=== PATIENT | female | born 1970 | race Caucasian/White ===

== ENCOUNTER → 2017-07-09 | Outpatient (CLI) | payer OTHER ==
[~2017-07-09] MED LIST: ASPI325T39 PO; HYDR-5688 PO; IBUP-103 PO; [UNRECOGNIZED DRUG - REMARK] PO
[2017-07-09 16:59] LABS: BASO % 0.2 %; BASO ABS # 0.02 K/uL (0-0.2); COMPLETE YES; EOS % 0.5 %; HEMATOCRIT 39.8 % (37-47); IG% 0.3 %; LYMPH % 24.9 %; LYMPH ABS # 2.87 K/uL (1.2-3.4); MEAN CELL VOLUME 93.6 fL (80-100); MEAN CORPUSCULAR HEMOGLOBIN 30.8 pg (25-34); MEAN CORPUSCULAR HGB CONC 32.9 g/dl (32-36); MEAN PLATELET VOLUME 12.5 fL (7.4-10.4); MONO % 6.1 %; PLATELET COUNT 231 K/uL (130-400); RED BLOOD COUNT 4.25 M/uL (4.2-5.4); WHITE BLOOD COUNT 11.51 K/uL (4.8-10.8)
[2017-07-09 17:06] LABS: URINE APPEARANCE CLEAR (CLEAR); URINE BILIRUBIN NEG (NEG); URINE COLOR YELLOW; URINE NITRITE NEG (NEG); UROBILINOGEN NEG (NEG)
[2017-07-09 17:12] LABS: MANUAL MICROSCOPIC REQUIRED? NO; REVIEW REQ? NO
[2017-07-09 17:40] LABS: PREG INTERNAL NEGATIVE QC NEG CLEAR BACKGROUND; PREG INTERNAL POSITIVE QC POS CONTROL LINE
== END | disposition home or self-care (01) ==
LOC: C.LABBC 14:19
PROVIDERS: ATTEND Orthopaedic Surgery Orthopaedic Surgery of the Spine
DX: Z01.812 Encounter for preprocedural laboratory examination (principal)

== ENCOUNTER 2017-07-13 05:54 | Observation (INO) | payer OTHER ==
[2017-07-10 10:18] VITALS: BMI 28.0
--- NOTE | 2017-07-10 12:15 | HISTORY & PHYSICAL EXAMINATION ---
DATE OF ADMISSION: 07/13/2017 CHIEF COMPLAINT: Right ankle pain. PREOPERATIVE DIAGNOSIS: Right ankle bimalleolar fracture. HISTORY OF PRESENT ILLNESS: Tabatha is a delightful patient. I have known her for several years, performed lumbar spine surgery on her several years ago. She fell, suffered acute injury to her right lower extremity, right ankle on the 08 of July. She was seen and evaluated in office. She has a bimalleolar fracture of the ankle. We have scheduled her for surgery. PAST MEDICAL HISTORY: Positive for anxiety. No depression, spine issues, low back issues. No kidney, liver issues. No carcinoma. No anesthesia difficulties. No hypertension, COPD. PAST SURGICAL HISTORY: Lumbar spine surgery. ALLERGIES: ASPIRIN. MEDICATIONS: Nichols. REVIEW OF SYSTEMS: Denies blurred vision, double vision, tinnitus, vertigo, chest trauma, head trauma. No shortness of breath. No nausea, vomiting. No palpitations. No urgency, frequency. She has a fairly singular right ankle complaint. PHYSICAL EXAMINATION" GENERAL: 5 feet 5 inches, 170 pounds, 46 years of age, alert, oriented, mentation normal. VITAL SIGNS: Blood pressure 130/80, pulse of 80, respiration rate 16, temperature 97.4. HEENT: Pupils react to light and accommodation. Ear, nose and throat clear. CARDIAC: Normal S1, S2, no S3. LUNGS: Clear to auscultation. No rales, rhonchi or wheezing. ABDOMEN: Soft, nontender, bowel sounds present. EXTREMITIES: Intact. She has pain and swelling referable to the right ankle. No breakage of skin, no warmth or erythema. ASSESSMENT: Bimalleolar ankle fracture, otherwise healthy 46-year-old. DISPOSITION: Includes ORIF of the right ankle performing at [facility] on the
[~2017-07-13] VITALS: Ht 165.1 cm; Wt 77.3 kg
[2017-07-13] VITALS (10 sets, daily range): BP systolic 109–134; BP diastolic 67–82; PULSE 55–77; TEMP 36.4–37.1; O2SAT 95–99; Ht 165.1 cm; Wt 77.3 kg
[~2017-07-13 05:54] MED LIST changes: -ASPI325T39 PO; -IBUP-103 PO; +PATIENT'S HEIGHT AND/OR WEIGHT NEEDED SCH; -[UNRECOGNIZED DRUG - REMARK] PO
[2017-07-13] MEDS ORDERED: CEFAZOLIN 2000MG IV PUSH 10 ML IV SCH (06:00)
[2017-07-13] MEDS ORDERED: NSS 1000ML IV SCH (06:00)
[2017-07-13] MEDS ORDERED: LACTATED RINGER'S 1000ML 1,000 ML IV SCH (06:00)
[2017-07-13] MEDS ORDERED: LIDOCAINE HCL 2% 2 ML VIAL (20MG/ML) ONE (06:57)
[2017-07-13] MEDS ORDERED: ONDANSETRON INJ 2 MG/ML 2 ML VIAL ONE (06:57)
[2017-07-13] MEDS ORDERED: DEXAMETHASONE SOD INJ 4 MG/ML VIAL ONE (06:57)
[2017-07-13] MEDS ORDERED: PROPOFOL IV EMULSION 10 MG/ML 20 ML VIAL IV ONE (06:57)
[2017-07-13] MEDS ORDERED: MIDAZOLAM HCL 1 MG/ML 2ML VIAL ONE (06:57)
[2017-07-13] MEDS ORDERED: FENTANYL CITRATE INJ 50 MCG/1 ML 2 ML VIAL ONE ×2 (06:57→07:36)
[2017-07-13] MEDS ORDERED: BACITRACIN 50000 UNIT VIAL ONE (06:59)
[2017-07-13] MEDS ORDERED: BUPIVACAINE/EPINEPHRINE 0.5% MPF 1:200,000 30 ML VIAL ONE (06:59)
--- NOTE | 2017-07-13 07:14 | History & Physical Bridge Note ---
H&P Re-Evaluation Bridge Note: I have examined the patient, reviewed the History & Physical and in the interval since the performance of the History & Physical I have noted the following changes of clinical significance: No changes noted
[2017-07-13] MEDS ORDERED: HYDROmorphone INJ 2 MG/ML SYR/VIAL ONE (07:58)
[2017-07-13] MEDS ORDERED: GLYCOPYRROLATE INJ 0.2 MG/ML VIAL ONE (08:05)
[2017-07-13] MEDS ORDERED: NEOSTIGMINE METHYLSULFATE 5 MG/5 ML SYR ONE (08:05)
[2017-07-13] MEDS ORDERED: LABETALOL HCL IV 5 MG/ML 20ML IV PRN (09:00)
[2017-07-13] MEDS ORDERED: ATROPINE SULFATE 0.1 MG/ML 5ML SYR IV PRN (09:00)
[2017-07-13] MEDS ORDERED: HYDROmorphone INJ 1 MG/ML SYR IV PRN (09:00)
[2017-07-13] MEDS ORDERED: MEPERIDINE HCL 25 MG/ML CARP IV PRN (09:00)
[2017-07-13] MEDS ORDERED: ONDANSETRON INJ 2 MG/ML 2 ML VIAL IV PRN (09:00)
[2017-07-13] MEDS ORDERED: EpHEDrine SULFATE INJ 50 MG/ML AMP IV PRN (09:00)
--- NOTE | 2017-07-13 09:15 | [facility] Post Operative Brief Note ---
Immediate Operative Summary Operative Date Jul 13, 2017. Pre-Operative Diagnosis Right ankle bimalleolar fracture Post-Operative Diagnosis Right ankle bimalleolar fracture Procedure(s) Performed Right Ankle Open Reduction Internal Fixation Surgeon Dr. Sampson Miguel Protective Signal Installer Helper Surgeon(s) Donald Perdomo PA-C Estimated Blood Loss 10mL Findings broken ankle Specimens none per surgeon Complication(s) None Disposition Recovery Room / PACU
[2017-07-13] MEDS: FENTANYL CITRATE INJ 50 MCG/1 ML 2 ML VIAL IV PRN ×2 (09:35→09:51)
--- NOTE | 2017-07-13 09:46 | OPERATIVE REPORT ---
DATE OF OPERATION: 07/13/2017 PREOPERATIVE DIAGNOSIS: Bimalleolar ankle fracture. POSTOPERATIVE DIAGNOSIS: Same. PROCEDURE: Open reduction and internal fixation right bimalleolar ankle fracture. ANESTHETIC: LMA. SURGEON: Dr. Miguel. TISSUE PACKER: Usama Perdomo PA-C. ESTIMATED BLOOD LOSS: Less than 10 mL COMPLICATIONS: Zero. Sponge and needle count correct at the close. IMPLANTS USED: By the [employer]. DESCRIPTION OF PROCEDURE: The patient was taken to the operating room, a general LMA anesthetic provided to the patient, tourniquet applied to her right thigh. Scrubbed first with Betadine, prepped with ChloraPrep. Draped sterile. Formal timeout provided. We made a lateral based skin incision first really right to the periosteum, dissecting the soft tissue. We irrigated with relative ease. We were able to get it reduced in anatomic positioning. I used the lag screw technique anterior to posterior, then a small plate placed on the side with various size cortical and cancellous screws. We then went to the medial side. I made skin incision, fascial incision. I was able to reduce the fracture to near anatomic position. Two screws used for fixation. We irrigated, closed in layers. Sterile dressings applied, splint applied. The patient extubated to PACU stable. No apparent complications. I attest to the content of the Intraoperative Record and any orders documented therein. Any exception s are noted below.
--- NOTE | 2017-07-13 10:06 | Anesthesiology Progress Note ---
Anesthesia Post Op Note Date & Time Jul 13, 2017 at 10:06 Vital Signs Pain Intensity: 4 Vital Signs Past 12 Hours Date Time Temp Pulse Resp B/P (MAP) Pulse Ox O2 Delivery O2 Flow Rate FiO2 07/13/17 10:03 53 13 96 07/13/17 10:03 53 13 07/13/17 10:03 36.2 54 18 97 Nasal Cannula 4 07/13/17 10:01 131/82 07/13/17 09:58 70 10 97 07/13/17 09:58 59 10 07/13/17 09:56 126/82 07/13/17 09:53 54 15 96 07/13/17 09:53 58 15 07/13/17 09:51 137/79 07/13/17 09:48 54 14 93 07/13/17 09:48 53 14 07/13/17 09:46 136/84 07/13/17 09:43 51 19 95 07/13/17 09:43 51 19 07/13/17 09:41 135/85 07/13/17 09:38 68 21 07/13/17 09:38 68 21 95 07/13/17 09:36 135/84 07/13/17 09:33 62 17 07/13/17 09:33 61 17 95 07/13/17 09:31 139/88 07/13/17 09:28 70 19 92 07/13/17 09:28 71 19 07/13/17 09:26 135/97 07/13/17 09:23 75 32 93 07/13/17 09:23 76 32 07/13/17 09:21 135/91 07/13/17 09:18 83 16 91 07/13/17 09:18 83 16 07/13/17 09:16 144/83 07/13/17 09:14 134/80 07/13/17 09:13 36.4 79 18 134/80 94 Mask 12 07/13/17 06:05 36.6 77 20 121/70 (87) 97 Room Air Notes Mental Status: alert / awake / arousable, participated in evaluation Pt Amnestic to Procedure: Yes Nausea / Vomiting: adequately controlled Pain: adequately controlled Airway Patency, RR, SpO2: stable & adequate BP & HR: stable & adequate Hydration State: stable & adequate Anesthetic Complications: no major complications apparent
--- NOTE | 2017-07-13 10:18 | DIAGNOSTIC IMAGING REPORT ---
R ANKLE 2 VIEWS CLINICAL HISTORY: RT ORIF ANKLE Fluoroscopy time: 5 seconds. FINDINGS: 4 fluoroscopic spot images of the right ankle. Status post internal fixation of a bimalleolar fracture. The hardware appears intact. IMPRESSION: Fluoroscopy provided for internal fixation of a bimalleolar fracture. Electronically signed by: Alfred Craft M.D. 07/13/2017 10:17 AM Dictated Date/Time: 07/13/2017 10:16 AM
[2017-07-13] MEDS ORDERED: IV FLUIDS COMPLETED PRN (11:00)
[2017-07-13] MEDS: SODIUM CHLORIDE 0.9% 1000ML 1,000 ML IV SCH ×2 (11:25→23:49)
[2017-07-13] MEDS ORDERED: ASPIRIN 81 MG CHEW PO ONE (12:00)
[2017-07-13] MEDS: OXYCODONE/ACETAMINOPHEN 5-325 TAB PO PRN ×4 (12:11→23:49)
[2017-07-13] MEDS ORDERED: ASPIRIN 81 MG ECTAB PO ONE (14:00)
[2017-07-13] MEDS ORDERED: NURSING VERBAL MED ORDER ONE (18:00)
[2017-07-13] MEDS: NICOTINE 21 MG/24 HR TDSY TD SCH (19:43)
[2017-07-14 03:52] VITALS: BP 108/67; PULSE 79; TEMP 36.8; O2SAT 96
[2017-07-14] MEDS: OXYCODONE/ACETAMINOPHEN 5-325 TAB PO PRN ×3 (04:02→12:18)
[2017-07-14] MEDS ORDERED: CEFAZOLIN IV 1,000 MG in DEXTROSE 5% 50ML 50 ML IV SCH (06:00)
[2017-07-14 07:14] VITALS: BP 113/71; PULSE 71; TEMP 36.6; O2SAT 95
[2017-07-14 07:31] VITALS: O2SAT 93
[2017-07-14] MEDS ORDERED: HYDR-5688 PO (07:47)
--- NOTE | 2017-07-14 07:47 | Anesthesiology Progress Note ---
Anesthesia Post Op Note Date & Time Jul 14, 2017 at 07:46 Vital Signs Vital Signs Past 12 Hours Date Time Temp Pulse Resp B/P (MAP) Pulse Ox O2 Delivery O2 Flow Rate FiO2 07/14/17 07:14 36.6 71 16 113/71 (85) 95 Nasal Cannula 1.0 07/14/17 04:40 Nasal Cannula 1.0 Humidified Oxygen 07/14/17 03:52 36.8 79 16 108/67 (81) 96 Nasal Cannula 2.0 07/13/17 23:46 Nasal Cannula 2.0 07/13/17 23:32 37.1 65 16 119/71 (87) 95 Room Air Notes Mental Status: alert / awake / arousable, participated in evaluation Pt Amnestic to Procedure: Yes Nausea / Vomiting: adequately controlled Pain: adequately controlled Airway Patency, RR, SpO2: stable & adequate BP & HR: stable & adequate Hydration State: stable & adequate Anesthetic Complications: no major complications apparent
[2017-07-14] MEDS ORDERED: ASPI325T39 PO (07:49)
--- NOTE | 2017-07-14 07:50 | Discharge Instructions ---
Discharge Instructions Date of Service Jul 14, 2017. Admission Reason for Admission: Right Ankle Fracture Discharge Discharge Diagnosis / Problem: same Discharge Goals Goal(s): Improve function Activity Recommendations Activity Limitations: as noted below Lifting Limitations: gradually increase as tolerated Exercise/Sports Limitations: until after follow-up appointment Shower/Bathe: keep incision dry Weightbearing Status: Right partial . Current Hospital Diet Patient's current hospital diet: Regular Diet Discharge Diet Recommended Diet: Regular Diet Procedures Procedures Performed: Right Ankle Open Reduction Internal Fixation Pending Studies Studies pending at discharge: no Medical Emergencies . Who to Call and When: Medical Emergencies: If at any time you feel your situation is an emergency, please call 911 immediately. . Non-Emergent Contact Non-Emergency issues call your: Surgeon . "Provider Documentation" section prepared by Cj Miguel. . VTE Core Measure Inpt VTE Proph given/why not?: Other Anticoagulation
--- NOTE | 2017-07-14 08:00 | DISCHARGE SUMMARY ---
SUBJECTIVE: She is alert, oriented here this morning. Pain controlled. OBJECTIVE: Vital signs stable. No complaints, no chest pain, shortness of breath. ASSESSMENT: Status post open reduction internal fixation of the ankle, improved, stable. DISPOSITION: Includes instructions, precautions, education here today. We will discharge her home, partial weightbearing permitted on the right.
[2017-07-14] MEDS: NICOTINE 21 MG/24 HR TDSY TD SCH (08:33)
[2017-07-14] MEDS ORDERED: RIVAROXABAN 10 MG TAB PO SCH (09:00)
[2017-07-14 10:29] VITALS: BP 113/71; PULSE 71; TEMP 36.6; O2SAT 95
[2017-07-14] MEDS: SODIUM CHLORIDE 0.9% 1000ML 1,000 ML IV SCH (12:15)
== END 2017-07-14 14:30 | disposition home or self-care (01) ==
LOC: C.ACU 05:54 → C.3E 09:20 → ENRESERV 09:58
PROVIDERS: ADMIT Orthopaedic Surgery Orthopaedic Surgery of the Spine; ATTEND Orthopaedic Surgery Orthopaedic Surgery of the Spine
DX: S82.841A Displaced bimalleolar fracture of right lower leg, initial encounter for closed fracture (principal); W19.XXXA Unspecified fall, initial encounter